=== PATIENT | male | born 1975 | race African-American/Black ===

== ENCOUNTER 2017-08-02 12:54 | Emergency (ER) | payer SELFPAY ==
[~2017-08-02] VITALS: Ht 175.3 cm; Wt 90.0 kg
[2017-08-02 12:58] VITALS: BP 143/82
[2017-08-02] MEDS ORDERED: IBUPROFEN 600MG TABLET PO ONE (13:15)
== END 2017-08-02 19:55 | disposition left against medical advice (07) ==
LOC: ER 13:16
DX: M25.572 Pain in left ankle and joints of left foot (principal); F17.200 Nicotine dependence, unspecified, uncomplicated
CPT/HCPCS: 99282